=== PATIENT | male | born 1990 | race Caucasian/White ===

== ENCOUNTER 2016-02-16 09:46 | Day surgery (SDC) | payer BC ==
[~2016-02-16 09:46] MED LIST: ACETAMINOPHEN 1000MG/100 ML PREMIX IV ONE; CLINDAMYCIN 600MG/50ML PREMIX 50 ML IVPB ONE
[2016-02-16 10:04] LABS: BASO % 0.2 % (0-6); EOS % 1.8 % (0-6); HEMATOCRIT 43.8 % (42.0-52.0); HEMOGLOBIN 15.3 gm/dl (14.0-18.0); LYMPH % 26.2 % (16-45); MEAN CELL VOLUME 88.1 fl (81-97); MEAN CORPUSCULAR HEMOGLOBIN 30.8 pg (27-33); MEAN CORPUSCULAR HGB CONC 34.9 g/dl (32-36); MEAN PLATELET VOLUME 10.2 fl (7.4-10.4); MONO % 9.8 % (0-9); PLATELET COUNT 174 K/uL (130-400); RED BLOOD COUNT 4.97 M/uL (4.40-5.70); WHITE BLOOD COUNT W/O DIFF 4.5 K/uL (4.2-12.2)
[2016-02-16] MEDS ORDERED: BUPIVACAINE 0.25% W/EPI MPF 30ML VIAL IVP ONE (14:00)
[2016-02-16] MEDS ORDERED: HYDROCODONE/APAP 5/325MG TABLET PO ONE (14:00)
[2016-02-16] MEDS ORDERED: FENTANYL PF 100MCG/2ML VIAL IV ONE (15:52)
[2016-02-16] MEDS ORDERED: PROPOFOL 10 MG/ML VIAL IV ONE (15:52)
[2016-02-16] MEDS ORDERED: ROCURONIUM BROMIDE 50MG/5ML VIAL IV ONE (15:52)
[2016-02-16] MEDS ORDERED: MIDAZOLAM HCL 2MG/2ML VIAL IV ONE (15:52)
[2016-02-16] MEDS ORDERED: HYDROMORPHONE HCL 2 MG/ML VIAL IV ONE (15:52)
[2016-02-16] MEDS ORDERED: SEVOFLURANE 250 ML INH ONE (15:52)
--- NOTE | 2016-02-17 17:16 | Operative Note ---
OPERATIVE REPORT DATE OF PROCEDURE: 02/16/2016. SURGEON: Supa Trejo D.O. REFERRING PHYSICIAN: Juvenal Sneed D.O. PREOPERATIVE DIAGNOSIS: REDUCIBLE RIGHT INGUINAL HERNIA. POSTOPERATIVE DIAGNOSIS: REDUCIBLE RIGHT INGUINAL HERNIA. PROCEDURE: Open right inguinal herniorrhaphy with mesh. INDICATIONS: The patient is a 25-year-old male who had pain and bulging in his right inguinal region. We did discuss repair and the risks, benefits, and alternatives. The risks include, but are not limited to, bleeding, infection, acute and chronic chronic pain, and recurrence. He understood this fully. Therefore consent was signed and questions were answered. DESCRIPTION OF PROCEDURE: He was taken to the operating room and was placed in the supine position. General anesthesia was administered per the Department of Anesthesia. The patient's right inguinal region was prepped and draped in the usual fashion. An oblique region was anesthetized with a total of 5.0 mL of 0.25% Sensorcaine with epinephrine. A 4.0-cm oblique incision was made. This was carried down through Radha's layer to the aponeurosis external oblique. A karrie was made with the scalpel blade and this was enlarged through the superficial inguinal ring with Metzenbaum scissors. Care was taken not to injure the underlying ilioinguinal nerves. Superior and inferior flaps were developed and a Vazquez was placed on the spermatic cord. This was dissected free from the underlying transversalis fascia and was retracted laterally with a Lawrence drain. The floor was inspected and was noted to be free of any direct herniation. The cremasteric fibers were taken down. The patient actually had an indirect hernia /communicating hydrocele. At this time the hernia sac was dissected free from the cord structures and a high ligation was done. At this time a right-sided ProGrip mesh was obtained. This was placed on the floor of the inguinal canal with excellent overlap of the pubic tubercle. Sutures went to the level of the pubic tubercle shelving portion of the inguinal ligament and the internal oblique aponeurosis. At this time the aponeurosis was closed over the cord with 2-0 Vicryl, Radha's layer was closed with 3-0 Vicryl, and the skin was closed with 4-0 Vicryl. He was taken to the recovery room in satisfactory condition. FINDINGS AT THE TIME OF SURGERY: Right inguinal hernia/communicating hydrocele repaired as above. Supa Trejo D.O. Date Time JOB NUMBER: [id number] cc: Zelda Durán
== END 2016-02-16 15:35 | disposition home or self-care (01) ==
LOC: SUR 09:46
PROVIDERS: ATTEND Surgery
DX: K40.90 Unilateral inguinal hernia, without obstruction or gangrene, not specified as recurrent (principal)
CPT/HCPCS: 85025; 49505; 00830; J3010; J1170